=== PATIENT | female | born 1950 | race Two or more races ===

== ENCOUNTER 2016-12-11 18:24 | Inpatient (IN) | payer OTHER ==
[~2016-12-11] VITALS: Ht 168.9 cm; Wt 70.3 kg
[2016-12-11 07:00] VITALS: BP 118/61
[2016-12-11] MEDS ORDERED: LISI-603 PO (18:42)
[2016-12-11] MEDS ORDERED: METF500T4 PO (18:42)
[2016-12-11] MEDS ORDERED: GLIP5TAB13 PO (18:42)
[2016-12-11] MEDS ORDERED: ASPI81TA2 PO (18:42)
[2016-12-11] MEDS ORDERED: AMLO5TAB4 PO (18:42)
[2016-12-11] MEDS ORDERED: IV NS 0.9% 1,000 ML ONE (18:43)
[2016-12-11] MEDS ORDERED: IV SET PRIMARY 1 EA INFUS.SET MC ONE (18:43)
[2016-12-11 18:46] LABS: BASOPHILS # (AUTO) 0.1 /CMM (0.0-0.2); BASOPHILS % (AUTO) 0.7 % (0.0-2.0); EOSINOPHILS # (AUTO) 0.1 /CMM (0.0-0.7); HEMATOCRIT 44 % (33-45); HEMOGLOBIN 14.7 g/dL (11.5-14.8); LYMPHOCYTES # (AUTO) 3.6 /CMM (0.8-4.8); LYMPHOCYTES % (AUTO) 30.6 % (20.0-44.0); MEAN CORPUSCULAR HEMOGLOBIN 29 PG (26.0-33.0); MEAN CORPUSCULAR HGB CONC 34 g/dl (31.0-36.0); MEAN CORPUSCULAR VOLUME 88 fL (82-100); MONOCYTES # (AUTO) 0.6 /CMM (0.1-1.30); MONOCYTES % (AUTO) 5.4 % (2.0-12.0); NEUTROPHILS # (AUTO) 7.2 /CMM (1.8-8.9); NEUTROPHILS % (AUTO) 62.3 % (43.0-81.0); PLATELET COUNT (AUTO) 179 /CMM (150-450); RDW COEFFICIENT OF VARIATION 12.6 (11.5-15.0); RED BLOOD CELL COUNT(AUTO) 4.99 MIL/uL (4.0-5.2); WHITE BLOOD COUNT (AUTO) 11.6 K/uL (4.3-11.0)
[2016-12-11 18:58] LABS: CALCIUM, SERUM 8.5 mg/dL (8.5-10.1); CARBON DIOXIDE 25 mmol/L (21-32); CHLORIDE 108 mmol/L (98-107); CREATININE 0.8 mg/dL (0.6-1.3); GFR 72 mL/min (>60); GLUCOSE 289 mg/dL (74-106); POTASSIUM 3.3 mmol/L (3.5-5.1); SODIUM SERUM 142 mmol/L (136-145); UREA NITROGEN, BLOOD 13 mg/dL (7-18)
[2016-12-11] MEDS ORDERED: IV NS 0.9% 1,000 ML BAG IV ONE (19:00)
[2016-12-11 19:06] LABS: TROPONIN I < 0.017 ng/mL (0.00-0.056)
[2016-12-11 19:10] LABS: ALANINE AMINOTRANSFERASE 15 U/L (12-78); ALBUMIN 3.1 g/dL (3.4-5.0); ALKALINE PHOSPHATASE 44 U/L (46-116); ASPARTATE AMINOTRANSFERASE 13 U/L (15-37); BILIRUBIN,DIRECT 0.1 mg/dL (0.0-0.2); BILIRUBIN,TOTAL 0.4 mg/dL (0.2-1.0); TOTAL PROTEIN, SERUM 5.9 g/dL (6.4-8.2)
[2016-12-11 19:11] LABS: INR 1.08 (0.87-1.13); PROTHROMBIN TIME 11.2 SECS (9.5-12.7)
--- NOTE | 2016-12-11 19:11 | NUR ---
ASSUMED CARE. RECEIVE REPORT FROM AM SHIFT ADRIÁN SHEARER. PT AAOX4 NO ACUTE DISTRESS NOTED, RESP EVEN AND UNLABORED. PT DENIES PAIN OR DISCOMFORT AT THIS TIME. PT ON CARDIAC MONITORING, CONTINUOUS POX. CALL LIGHT WITHIN REACH. WILL CONTINUE TO MONITOR PT CLOSELY.
--- NOTE | 2016-12-11 20:32 | NUR ---
ER SPOKE TO SACHIN SMITH DNP REGARDING PT ADMISSION. WILL CALL FOR REPORT.
--- NOTE | 2016-12-11 20:34 | NUR ---
REPORT CALLED TO PRINCIPAL QUALITY ENGINEER. WILL TRANSPORT PT VIA ACLS PROTOCOL.
[2016-12-11] MEDS ORDERED: IV NS 0.9% 1,000 ML IV PRN (20:59)
[2016-12-11 21:00] VITALS: BP 111/58
[2016-12-11] MEDS ORDERED: INSULIN REGULAR, HUMAN 100 UNIT/ML 3 ML VIAL SQ PRN (21:00)
[2016-12-11] MEDS ORDERED: ENOXAPARIN SODIUM 40 MG/0.4 ML DISP.SYRIN SQ SCH (21:00)
[2016-12-11] MEDS ORDERED: DEXTROSE 50%-WATER 50 ML DISP.SYRIN IV PRN (21:00)
[2016-12-11] MEDS ORDERED: ONDANSETRON HCL/PF 4 MG/2 ML VIAL IVP PRN (21:00)
[2016-12-11] MEDS ORDERED: ZOLPIDEM TARTRATE 5 MG TABLET PO PRN (21:00)
[2016-12-11] MEDS ORDERED: *INSULIN REGULAR(HUMULIN R)HUM 100 UNIT/ML VIAL SQ PRN (21:00)
[2016-12-11] MEDS ORDERED: ACETAMINOPHEN 325 MG TABLET PO PRN (21:00)
--- NOTE | 2016-12-11 21:00 | NUR ---
RN NOTES RECEIVED PATIENT FROM ER VIA BRE. A/O X4. NO SIGNS OF DISTRESS OR DISCOMFORT. BREATHING EVEN AND UNLABORED. ON 2LPM O2 VIA NC. IV ACCESS IN RAC PATENT AND INTACT. NO SIGNS OF REDNESS OR INFILTRATION. DENIES ANY PAIN AT THIS TIME. ORIENTED PATIENT TO UNIT AND ROOM. BED IN LOW LOCKED POSITION WITH SIDE RAILS X2. CALL LIGHT WITHIN REACH. WILL CONTINUE TO MONITOR. Addendum: 12/12/16 at 0259 by FE HAYWOOD RN PATIENT ON TELE MONITOR, [id number] 70'S NOTED.
[2016-12-11] MEDS ORDERED: IV SET PRIMARY PUMP SET 1 EA INFUS.SET MC ONE (21:42)
[2016-12-11] MEDS ORDERED: ENOXAPARIN SODIUM 40 MG/0.4 ML DISP.SYRIN SQ ONE (21:49)
[2016-12-11] MEDS ORDERED: INSULIN REGULAR, HUMAN 100 UNIT/ML 10 ML VIAL ONE (22:19)
[2016-12-11] MEDS: BLOOD SUGAR DIAGNOSTIC 1 EACH STRIP IN SCH (22:49)
[2016-12-12] VITALS: BP 119/54
[2016-12-12 01:46] LABS: APPEARANCE,URINE SL CLOUDY (CLEAR); BILIRUBIN,URINE NEGATIVE (NEGATIVE); BLOOD, URINE TRACE-INTA Ery/uL (NEGATIVE); COLOR,URINE YELLOW (YELLOW); KETONES,URINE NEGATIVE (NEGATIVE); LEUKOCYTE ESTERASE ,URINE NEGATIVE (NEGATIVE); NITRITE, URINE POSITIVE (NEGATIVE); PROTEIN,URINE NEGATIVE (NEGATIVE); UGLUCOSE 3+ mg/dL (NEGATIVE); UROBILINOGEN,URINE 0.2 EU/dL (0.2)
[2016-12-12 01:50] LABS: ADD URINE CULTURE YES; BACTERIA,URINE Few /HPF (None Seen); RBC,URINE 0-2 /HPF (0-2); SQUAMOUS EPITHELIAL CELL,UR Few /HPF (None Seen); YEAST,URINE Moderate /HPF (None Seen)
--- NOTE | 2016-12-12 04:26 | NUR ---
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 I ADVISED PATIENT REGARDING HAZARDS ASSOCIATED WITH SMOKING AND RISK OF INJURY WITH AMBULATING AT THIS TIME DUE TO DIAGNOSIS OF SYNCOPE. SHE IS AWARE THAT SMOKING AT THIS TIME IS AGAINST MEDICAL ADVISE. PER PATIENT SHE WILL GO DOWN ON HER OWN IF SOMEONE DOESN'T TAKE HER DOWN, WE CANNOT HOLD HER AND STOP HER FROM SMOKING. INFORMED HER THAT THIS FACILITY HAS A SMOKE-FREE POLICY. PATIENT WAS PROVIDED WITH INFORMATION REGARDING SMOKING CESSATION. PATIENT HAS SIGNED INFORMED CONSENT FOR SMOKING. WILL CONTINUE TO MONITOR. Addendum: 12/12/16 at 0446 by FE HAYWOOD RN I ALSO OFFERED THE OPTION OF A NICOTINE PATCH. PATIENT REFUSED AND STATED SHE HAS TRIED THE NICOTINE PATCH BEFORE AND IT MAKES HER CRAZY.
--- NOTE | 2016-12-12 04:31 | NUR ---
RN NOTES PATIENT HAS RETURNED TO UNIT. 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 WILL CONTINUE TO MONITOR.
[2016-12-12] MEDS ORDERED: MECLIZINE HCL 25 MG TABLET ONE (06:07)
[2016-12-12 06:18] LABS: EOSINOPHILS # (AUTO) 0.1 /CMM (0.0-0.7); HEMATOCRIT 43 % (33-45); HEMOGLOBIN 14.6 g/dL (11.5-14.8); LYMPHOCYTES # (AUTO) 3.8 /CMM (0.8-4.8); LYMPHOCYTES % (AUTO) 38.6 % (20.0-44.0); MEAN CORPUSCULAR HEMOGLOBIN 30 PG (26.0-33.0); MEAN CORPUSCULAR HGB CONC 34 g/dl (31.0-36.0); MEAN CORPUSCULAR VOLUME 88 fL (82-100); MONOCYTES # (AUTO) 0.6 /CMM (0.1-1.30); MONOCYTES % (AUTO) 5.6 % (2.0-12.0); NEUTROPHILS # (AUTO) 5.4 /CMM (1.8-8.9); NEUTROPHILS % (AUTO) 54.8 % (43.0-81.0); PLATELET COUNT (AUTO) 164 /CMM (150-450); RDW COEFFICIENT OF VARIATION 13.1 (11.5-15.0); RED BLOOD CELL COUNT(AUTO) 4.93 MIL/uL (4.0-5.2); WHITE BLOOD COUNT (AUTO) 9.9 K/uL (4.3-11.0)
[2016-12-12] MEDS ORDERED: MECLIZINE HCL 12.5 MG TABLET PO PRN ×2 (06:30→07:00)
[2016-12-12] MEDS: BLOOD SUGAR DIAGNOSTIC 1 EACH STRIP IN SCH (06:40)
--- NOTE | 2016-12-12 06:51 | NUR ---
RN NOTES KATE COMPLAIN OF VERTIGO. ADMINISTERED 25MG MECLIZINE HCL PO ORDERED PRN FOR VERTIGO, SACHIN SMITH NP ORDERED 50MG MECLIZINE HCL PRN BUT PATIENT ONLY WANTED TO TAKE ONE TABLET AT THIS TIME. WILL CONTINUE TO MONITOR.
[2016-12-12 07:00] VITALS: BP 118/61
[2016-12-12 07:07] LABS: ALBUMIN 3.1 g/dL (3.4-5.0); BILIRUBIN,TOTAL 0.3 mg/dL (0.2-1.0); CALCIUM, SERUM 8.2 mg/dL (8.5-10.1); CREATININE 0.6 mg/dL (0.6-1.3); MAGNESIUM 1.6 mg/dL (1.8-2.4); PHOSPHORUS 3.5 mg/dL (2.5-4.9); POTASSIUM 3.3 mmol/L (3.5-5.1); TOTAL PROTEIN, SERUM 6.1 g/dL (6.4-8.2)
--- NOTE | 2016-12-12 07:20 | NUR ---
RN NOTES PATIENT HAS LEFT AGAINST MEDICAL ADVISE. I EDUCATED PATIENT ON HER SAFETY AND RISK FOR INJURY DUE TO SYNCOPE DIAGNOSIS. PATIENT DENIES ANY DIZZINESS AT THIS TIME. STATES SHE DOES NOT LIKE TO BE TOLD WHAT TO DO. SHE INSIST ON LEAVING DESPITE RISK TO SAFETY. IV ACCESS HAS BEEN REMOVED. PATIENT SIGNED THE AMA FORM. CHARGE NURSE AWARE.
--- NOTE | 2016-12-12 08:46 | NUR ---
LAYING BP 11/61 HR 72 SITTING BP 123/64 HR 68 STANDING BP 104/61 HR 74 Addendum: 12/12/16 at 0848 by FE HAYWOOD RN Amended: Links added.
[2016-12-12] MEDS ORDERED: AMLODIPINE BESYLATE 5 MG TABLET PO SCH (09:00)
[2016-12-12] MEDS ORDERED: METFORMIN 500 MG TABLET PO SCH (09:00)
[2016-12-12] MEDS ORDERED: ASPIRIN 81 MG TAB.CHEW PO SCH (09:00)
[2016-12-12] MEDS ORDERED: glipiZIDE 5 MG TABLET PO SCH (09:00)
[2016-12-12] MEDS ORDERED: LISINOPRIL (20MG) 20 MG TABLET PO SCH (09:00)
== END 2016-12-12 08:51 | disposition left against medical advice (07) | DRG 48 ==
LOC: ER 18:29 → MED 20:43 → TELE 21:22
PROVIDERS: ADMIT Nurse Practitioner Acute Care; ATTEND Nurse Practitioner Acute Care
DX: G90.8 Other disorders of autonomic nervous system (principal); E11.65 Type 2 diabetes mellitus with hyperglycemia; I10 Essential (primary) hypertension; E88.09 Other disorders of plasma-protein metabolism, not elsewhere classified; E83.42 Hypomagnesemia; E78.5 Hyperlipidemia, unspecified; E87.6 Hypokalemia; Z79.84 Long term (current) use of oral hypoglycemic drugs
CPT/HCPCS: 36415; 71010-TC; 80048-TC; 80053-TC; 80061-TC; 80076-TC; 81000-TC; 82962-TC; 83735-TC; 84100-TC; 84484-TC; 85025-TC; 85730-TC; 87081-TC; 87086-TC; A4606; J1650; J1815; J7030; J8597; Z7610